=== PATIENT | male | born 1980 | race Caucasian/White ===

== ENCOUNTER 2017-10-11 00:36 | Emergency (ER) | payer OTHER ==
[2017-10-11] MEDS: KETOROLAC 30 MG/ML INJ. IV (01:10)
[2017-10-11] MEDS: HYDROcodone/APAP 5/325MG 1 TAB TABLET PO (01:52)
[2017-10-11] MEDS: HYDROmorphone 2 MG/ML VIAL IV (01:58)
== END 2017-10-11 02:13 | disposition home or self-care (01) ==
LOC: ER 00:36
DX: S43.101A Unspecified dislocation of right acromioclavicular joint, initial encounter (principal); W18.39XA Other fall on same level, initial encounter; Y93.89 Activity, other specified; Y99.8 Other external cause status; Y92.89 Other specified places as the place of occurrence of the external cause
CPT/HCPCS: 73000; 73060; 96374; 96375; 99284-25; J1170; J1885